=== PATIENT | female | born 1945 | race Caucasian/White ===

== ENCOUNTER 2018-05-16 16:05 | Outpatient (CLI) | payer MEDICARE ==
--- NOTE | 2018-05-16 16:22 | RAD ---
LEFT WRIST THREE VIEWS: History: Left wrist pain. FINDINGS: There is dorsal tilt of the distal radius with cortical remodeling of the distal radial metaphysis. A cute fracture is not reliably demonstrated. Scaphoid waist is intact. Ulnar styloid is maintained. Mo derate osteophytosis throughout the wrist. No aggressive osseous erosions. IMPRESSION: Abnormality of the left wrist is favored to represent an old distal radial fracture, healed in dorsal angulation. Acute fracture is not readily apparent. If there is recent trauma and ongoing concern re garding the possibility of acute injury, please consider immobilization and CT evaluation. POS: KENDRICK
== END 2018-05-16 16:06 | disposition home or self-care (01) ==
LOC: RAD-FRANK 16:05
DX: M25.532 Pain in left wrist (principal); R93.7 Abnormal findings on diagnostic imaging of other parts of musculoskeletal system

== ENCOUNTER 2018-05-18 13:15 | Outpatient (CLI) | payer MEDICARE ==
--- NOTE | 2018-05-18 14:23 | RAD ---
LEFT WRIST THREE VIEWS: History: 72-year-old female with history of follow up left wrist pain. Comparison: 05-16-18 FINDINGS: Again noted is some deformity of the distal radius having more the appearance of an old injury. Arthr osis changes of the triscaphe lesion and trapezium first metacarpal joints. IMPRESSION: Distal radial deformity having more the appearance of an old injury. Left wrist arthrosis. Given the fact that the patient has persistent left wrist pain, if there is clinical concern that this is an ac ambler injury or if the patient has persistent or worsening pain, consider follow up CT scan for further assessment. POS: KENDRICK
== END 2018-05-18 13:16 | disposition home or self-care (01) ==
LOC: RAD-FRANK 13:15
DX: M25.532 Pain in left wrist (principal); M19.032 Primary osteoarthritis, left wrist

== ENCOUNTER 2018-07-01 15:04 | Outpatient (CLI) | payer MEDICARE | END 2018-07-01 15:05 | disposition home or self-care (01) | LOC: BICMRI 15:04 | PROVIDERS: ATTEND Orthopaedic Surgery Hand Surgery | DX: S63.592A Other specified sprain of left wrist, initial encounter (principal); S63.8X2A Sprain of other part of left wrist and hand, initial encounter; M24.132 Other articular cartilage disorders, left wrist; M65.88 Other synovitis and tenosynovitis, other site; M19.032 Primary osteoarthritis, left wrist; M21.932 Unspecified acquired deformity of left forearm ==

== ENCOUNTER 2018-07-26 08:15 | Inpatient (IN) | payer MEDICARE ==
[2018-07-25 14:21] VITALS: BMI 41.9
[2018-07-26 10:03] LABS: #Basophils 0.1 thou/uL (0.0-0.2); #Eosinphils 0.2 thou/uL (0.0-0.7); #Lymphocytes 3.3 thou/uL (1.20-3.40); #Monocytes 0.7 thou/uL (0.11-0.59); #Neutrophils 4.1 thou/uL (1.40-6.50); %Basophils 1.3 % (0.0-1.0); %Eosinophils 2.9 % (0.0-10.0); %Lymphocytes 39.4 % (21.0-51.0); %Monocytes 7.9 % (0.0-10.0); %Neutrophils 48.6 % (42.0-75.0); Hemoglobin 13.9 g/dL (12.0-16.0); Mean Corpuscular HGB CONC 32.6 g/dL (32.0-36.0); Mean Corpuscular Hemoglobin 30.5 pg (27.0-31.0); Mean Corpuscular Volume 93.5 fL (78.0-98.0); Platelet Count 246 thou/uL (130-400); RBC Distribution Width 13.1 % (11.5-14.5); Red Blood Cell (RBC) Count 4.56 mill/uL (4.20-5.40); White Blood Cell (WBC) Count 8.4 thou/uL (4.8-10.8)
[2018-07-26 10:23] LABS: Anion Gap 13 mmol/L (10-20); BUN (Urea Nitrogen) 15 mg/dL (9.8-20.1); Calc. Creatinine Clearance 116 mL/min (70-130); Calcium 9.6 mg/dL (7.8-10.44); Carbon Dioxide 23 mmol/L (23-31); Chloride 107 mmol/L (98-107); Estimated GFR-MDRD 67; Glucose 108 mg/dL (80-115); Potassium 3.3 mmol/L (3.5-5.1); Sodium 140 mmol/L (136-145)
[2018-07-26] MEDS ORDERED: Midazolam HCl 2 mg/2 ml Vial ONE (10:36)
[2018-07-26] MEDS ORDERED: Bupivacaine PF 0.5% 30 ML VIAL ONE (11:13)
[2018-07-26] MEDS ORDERED: Bacitracin Zinc Ointment 30 gm TUBE ONE (11:13)
[2018-07-26] MEDS ORDERED: Fentanyl 100 MCG/2 ML VIAL ONE (11:18)
--- NOTE | 2018-07-26 11:45 | RAD ---
CHEST 2 VIEWS: Date: 07/26/18 HISTORY: Preop. COMPARISON: 05/23/16. FINDINGS: Heart size is enlarged. There are atherosclerotic changes of the aorta. The lungs are clear of infilt rates. Postoperative changes of the left shoulder are seen. There are arthritic changes of the spine. IMPRESSION: Mild cardiomegaly. Stable exam. POS: KENDRICK
--- NOTE | 2018-07-26 11:46 | RAD ---
LEFT WRIST 2 VIEWS: Date: 07/26/18 HISTORY: Preop. FINDINGS: There is deformity to the distal radius related to an old fracture. There are some arthritic changes of the wrist, including some mild changes of the radiocarpal joint space and first carpometacarpal matteo int space. No signs of any acute injury. IMPRESSION: Arthritic changes and old post-traumatic changes of the wrist. POS: KENDRICK
[2018-07-26] MEDS ORDERED: EPINEPHrine 1 MG/ML AMP ONE ×2 (12:06→12:07)
[2018-07-26] MEDS ORDERED: Ketorolac Tromethamine 30 MG/ML VIAL ONE (13:49)
[2018-07-26] MEDS ORDERED: Ondansetron HCl/PF 4 MG/2 ML Vial ONE (13:49)
[2018-07-26] MEDS ORDERED: diphenhydrAMINE 50 MG/ML VIAL ONE (13:49)
[2018-07-26] MEDS ORDERED: PROPOFOL 200 MG/20 ML VIAL ONE (13:49)
[2018-07-26] MEDS ORDERED: Lidocaine 1% PF 5 ML VIAL ONE (13:49)
[2018-07-26] MEDS ORDERED: ePHEDrine/0.9% NaCl/PF SYRINGE 50 mg/10 ml ONE (13:49)
[2018-07-26] MEDS ORDERED: Ondansetron HCl/PF 4 MG/2 ML Vial IVP PRN (15:59)
[2018-07-26] MEDS ORDERED: Promethazine HCl 25 MG/ML VIAL IM PRN (15:59)
[2018-07-26] MEDS ORDERED: Meperidine HCl/PF 25 MG/ML VIAL SLOW IVP PRN (15:59)
[2018-07-26] MEDS ORDERED: HYDROmorphone 2 MG/ML VIAL SLOW IVP PRN (15:59)
[2018-07-26] MEDS ORDERED: Promethazine HCl 25 MG/ML VIAL SLOW IVP PRN (15:59)
[2018-07-26] MEDS ORDERED: Milk Of Magnesia 30 ML UDCUP PO PRN (16:01)
[2018-07-26] MEDS ORDERED: Ondansetron HCl/PF 4 MG/2 ML Vial IV PRN (16:01)
[2018-07-26] MEDS ORDERED: traMADol HCl 50 MG TAB PO PRN (16:01)
[2018-07-26] MEDS ORDERED: Communication Order-Pharmacy FS SCH (16:15)
[2018-07-26] MEDS ORDERED: TETANUS AND DIPHTHERIA TOX/PF 0.5 ML DISP.SYRIN IM SCH (16:15)
--- NOTE | 2018-07-26 16:46 | RAD ---
LEFT WRIST THREE VIEWS: HISTORY: Status post ORIF. FINDINGS: Ten portable fluoroscopic spot images are presented for interpretation. These demonstrate placement of a metallic plate and multiple screws stabilizing the distal radius. IMPRESSION: Metal plate and screws placed, stabilizing the distal radius. POS: C
[2018-07-26] MEDS: Aspirin 81 mg Enteric Coated Tablet PO SCH (20:13)
[2018-07-26] MEDS ORDERED: Prevnar 13-Val Conj/PF 0.5 ML SYRINGE IM ONE (21:00)
[2018-07-26] MEDS: HYDROcodone/Acetaminophen 5/325 mg Tablet PO PRN (23:08)
[2018-07-27] MEDS: HYDROcodone/Acetaminophen 5/325 mg Tablet PO PRN ×3 (03:25→12:53)
[2018-07-27] MEDS: Aspirin 81 mg Enteric Coated Tablet PO SCH (08:27)
[2018-07-27 15:19] VITALS: BP 124/72; TEMP 98.6
--- NOTE | 2018-07-28 09:05 | OP ---
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 FINDINGS: 1. Synovitis, wrist. 2. Triangular fibrocartilage radial and central tear, incomplete without true distal radioulnar join t instability. No evidence of intercarpal ligament tear. 3. 3 mm of radial shortening versus the contralateral side on preoperative radiograph. PROCEDURES PERFORMED: 1. Arthroscopic synovectomy of wrist, left. 2. Arthroscopic triangular fibrocartilage debridement, radial and a central tear. 3. Open distal radius osteotomy with bone grafting from cancellous block 5 mm thick, 5 mm x 1 cm in height from cadaver bone with application of a dorsal plate, 2-4 screws. 4. C-arm supervision, one hour. ESTIMATED BLOOD LOSS: 20 mL. TOURNIQUET TIME: 116 minutes. INDICATION: The patient with a fall, initially distal radius fracture developed ulnar side wri st pain. MRI was consistent with possible TFCC tear, and she showed dorsal angulation in the sagitta l plane (apex palmar) of 15 degrees greater than the contralateral side. It was felt that the correc t radius where the problem initiated would be more successful along the TFCC management than ul christal shortening. DESCRIPTION OF PROCEDURE: After successful general endotracheal anesthesia, the limb was prepped and draped. She had time-out done appropriately. The anesthesia was given by [facility]. It was augmented with 20 mL of 0.5% Marcaine block along with the planned scope and dorsal distal radius incision because the patient did not want to have a block and refused the block preop. The patient then had the tourniquet inflated after exsanguination of limb to 250 mmHg pressure. We t hen began with the arthroscopy with the arm in the [employer] arm weaver, suspended approximately 10-12 pounds of traction. We slightly distracted the joint, established under sterile technique with the t raction, the 3-4 portal, the 6U and 6R portals. Panoramic view revealed the patient had no scapholun ate or lunotriquetral tear, had some fraying to the chondral area over the lunate with only grade II changes and there was marked synovitis. Alternating between working portals and viewing portals betw een the 3-4 and the 6R, we were able to remove the synovium; and then using all 3 portals alternating between working and visualization, we were able to debride a 1 cm long tear that was about 2-3 mm wi de and was complete only in the central portion, otherwise it was incomplete. We gave a stable rim o n the radial and central area, and there was no instability. Then, we removed the arthroscope after performing synovectomy and finishing the panoramic view. We c losed the portals. We then made a zigzag incision with the tourniquet inflated in the interspace bet ween the third and fourth dorsal compartment, removed the retinaculum, but left it where it could be closed, elevated the extensor pollicis longus, the extensor carpi radialis longus and brevis and via complete visualization of the radius from the fourth, fifth, and sixth dorsal compartments. Then, we identified the old fracture line, and at this point, made a umang for saw cut. It was clear that we could see the radial negative area, but it was not as big as we had thought, and we also saw the old fracture line. We then placed a K-wire 90 degrees to the proximal shaft of the radius, and then one K-wire that was parallel to articular surface, noting that once we made our cut these two would have to be slightly over reduced. We then placed a saw and with protecting all structures with a baby [place] patel retractor on radioulnar aspect of the distal radius, cut down to approximately 1-2 mm from the v olar cortex, did not penetrate the volar cortex, and then slowly broke it using the wires in distal r adius fragment. Then, the patient had a lamina barbed wire machine operator brought into the field, there were three 0.0 62 K-wires used to manipulate as a joystick to the distal fragment, we had achieved adequate reductio n. We then brought the clamp and placed it inside, distracted about 5 to 6 mm and apex dorsal angula lennie now structure. We then achieved at least neutral height in most projections and we were able to maintain this, we pinned this with K-wires x3 across the fracture line, making it stable. The shaft was approximately 2 mm ulnar compared to the metaphyseal area creating slightly more movement at the distal radioulnar joint and we accepted a neutral to 0.5 mm radial positive wrist in order to achieve more height. There was no impingement once we had this construct pinned, then we placed cancellous bone models 5 mm at the dorsal surface and it went down to 1-2 mm width at the dorsal edge. We then used a bone tamp to make sure the bone was secured, continued to use frontal and lateral x-rays to sh ow it was secured. When the bone graft appeared to be almost the tanana shaft, we then select ed a plate to hold this. The plate was a 7-hole plate with 3 holes, 2.4, distal to the osteotomy radha e on the metaphysis and at the diaphysis junction proximal to the bone graft and osteotomy site. The re were 3 screws placed. All screws penetrated the cortex, gave excellent feel. The previous 12-deg ree palmar tilt corrected when the screws were placed proximally to approximately 4 or 5 degrees palm ar tilt. We then deflated the tourniquet, obtained hemostasis. The wound was closed in layers, firs t using a retinaculum closure with a 0 Vicryl interrupted [id number] pattern, followed by retina cular closure with 2-0 Vicryl interrupted [id number] pattern, and subcutaneous closure with 4-0 Monocryl without evidence of abnormality. We then closed the remaining portals as well as the epider mis with interrupted 4-0 nylon simple pattern. Remaining portion of the 40 mL injection was given an d the patient left the operating room with a sugar-tong splint without evidence of anesthetic or oper ative complication.
--- NOTE | 2018-07-31 14:36 | EKG ---
Test Reason : PREOP Blood Pressure : / mmHG Vent. Rate : 055 BPM Atrial Rate : 055 BPM P-R Int : 160 ms QRS Dur : 076 ms QT Int : 482 ms P-R-T Axes : 015 007 020 degrees QTc Int : 461 ms Sinus bradycardia Otherwise normal ECG When compared with ECG of 19-JUN-2016 09:30, No significant change was found Confirmed by NAHED BILL (2) on 07/31/2018 2:35:46 PM Referred By: Pancho TODD Confirmed By:NAHED BILL
== END 2018-07-27 16:45 | disposition home or self-care (01) | DRG 512 ==
LOC: SURG A 08:50
PROVIDERS: ADMIT Orthopaedic Surgery Hand Surgery; ATTEND Orthopaedic Surgery Hand Surgery
PROC: 0RBP4ZZ Excision of Left Wrist Joint, Percutaneous Endoscopic Approach (ICD-10-PCS; principal; 2018-07-26)
PROC: 0PBJ0ZZ Excision of Left Radius, Open Approach (ICD-10-PCS; 2018-07-26)
PROC: 0JDH3ZZ Extraction of Left Lower Arm Subcutaneous Tissue and Fascia, Percutaneous Approach (ICD-10-PCS; 2018-07-26)
PROC: 0PR Upper Bones, Replacement (ICD-10-PCS; 2018-07-26)
DX: S52.509P Unspecified fracture of the lower end of unspecified radius, subsequent encounter for closed fracture with malunion (principal); S63.592A Other specified sprain of left wrist, initial encounter; M25.832 Other specified joint disorders, left wrist; X58.XXXA Exposure to other specified factors, initial encounter; Y93.9 Activity, unspecified; Y92.9 Unspecified place or not applicable; M65.832 Other synovitis and tenosynovitis, left forearm; M25.332 Other instability, left wrist; E66.01 Morbid (severe) obesity due to excess calories; F41.8 Other specified anxiety disorders; W19.XXXD Unspecified fall, subsequent encounter; E11.9 Type 2 diabetes mellitus without complications; I10 Essential (primary) hypertension; Z98.84 Bariatric surgery status; Z88.0 Allergy status to penicillin
CPT/HCPCS: 36415; 71046; 76001; 80048; 85025; 90471; 90670; 93005; 93010; A4216; C1713; G0009; J0171; J1200; J1885; J2001; J2250; J2270; J2405; J2704; J3010; J3370; S0020

== ENCOUNTER 2019-03-21 19:40 | Emergency (ER) | payer MEDICARE | END 2019-03-21 21:07 | disposition home or self-care (01) | LOC: ERS 19:40 | DX: T23.172A Burn of first degree of left wrist, initial encounter (principal); T23.152A Burn of first degree of left palm, initial encounter; E11.9 Type 2 diabetes mellitus without complications; F41.9 Anxiety disorder, unspecified; F32.9 Major depressive disorder, single episode, unspecified; X16.XXXA Contact with hot heating appliances, radiators and pipes, initial encounter | CPT/HCPCS: 99283 ==

== ENCOUNTER 2021-09-11 11:28 | Outpatient (CLI) | payer MEDICARE | END 2021-09-11 11:29 | disposition home or self-care (01) | LOC: RAD-FRANK 11:28 | PROVIDERS: ATTEND Nurse Practitioner Family | DX: M25.512 Pain in left shoulder (principal); Z98.890 Other specified postprocedural states ==

== ENCOUNTER 2022-04-14 10:36 | Outpatient (CLI) | payer MEDICARE | END 2022-04-14 10:37 | disposition home or self-care (01) | LOC: BICMAMMO 10:36 | PROVIDERS: ATTEND Family Medicine | DX: Z13.820 Encounter for screening for osteoporosis (principal); M85.852 Other specified disorders of bone density and structure, left thigh | CPT/HCPCS: 77063; 77067; 77080 ==

== ENCOUNTER 2022-06-15 11:04 | Outpatient (CLI) | payer MEDICARE | END 2022-06-15 11:05 | disposition home or self-care (01) | LOC: RAD-FRANK 11:04 | PROVIDERS: ATTEND Nurse Practitioner Family | DX: M54.42 Lumbago with sciatica, left side (principal); M47.816 Spondylosis without myelopathy or radiculopathy, lumbar region | CPT/HCPCS: 72100 ==

== ENCOUNTER 2022-11-18 12:41 | Outpatient (CLI) | payer MEDICARE | END 2022-11-18 12:42 | disposition home or self-care (01) | LOC: MRI 12:41 | PROVIDERS: ATTEND Neurological Surgery | DX: M51.16 Intervertebral disc disorders with radiculopathy, lumbar region (principal); M51.37 Other intervertebral disc degeneration, lumbosacral region | CPT/HCPCS: 72148 ==

== ENCOUNTER 2025-08-08 11:45 | Emergency (ER) | payer MEDICARE ==
[2025-08-08] MEDS ORDERED: Ketorolac Tromethamine 30 MG (1 mL) VIAL ONE (13:53)
[2025-08-08] MEDS ORDERED: HYDROcodone/Acetaminophen 7.5/325 mg Tablet ONE ×2 (13:53→18:15)
[2025-08-08] MEDS ORDERED: Azithromycin 250 MG TAB ONE (18:58)
[2025-08-08] MEDS ORDERED: cefTRIAXone (ROCEPHIN) 500 MG VIAL ONE (18:58)
== END 2025-08-08 19:02 | disposition home or self-care (01) ==
LOC: ERS 11:45
DX: S32.029A Unspecified fracture of second lumbar vertebra, initial encounter for closed fracture (principal); S22.069A Unspecified fracture of T7-T8 vertebra, initial encounter for closed fracture; S40.022A Contusion of left upper arm, initial encounter; W18.2XXA Fall in (into) shower or empty bathtub, initial encounter; I10 Essential (primary) hypertension; E11.9 Type 2 diabetes mellitus without complications
CPT/HCPCS: 72125; 72128; 72131; 96372; J0696; J1885

== ENCOUNTER 2025-08-10 11:48 | Emergency (ER) | payer MEDICARE ==
[2025-08-10 15:37] LABS: ALT (SGPT) 38 U/L (Less than 34); AST (SGOT) 64 U/L (11-34); Albumin 3.4 g/dL (3.1-4.5); Alkaline Phosphatase 130 U/L (40-110); Anion Gap 17 mmol/L (10-20); BUN (Urea Nitrogen) 29 mg/dL (9.8-20.1); Bilirubin, Total 1.3 mg/dL (0.3-1.2); Calc. Creatinine Clearance 0 mL/min (70-130); Calcium 9.9 mg/dL (7.8-10.44); Carbon Dioxide 20 mmol/L (23-31); Chloride 107 mmol/L (98-107); Globulin 4.0 g/dL (2.4-3.5); Glucose 104 mg/dL (83-110); Potassium 5.2 mmol/L (3.5-5.1); Sodium 139 mmol/L (136-145)
== END 2025-08-10 16:50 | disposition home or self-care (01) ==
LOC: ERS 11:48
DX: S32.029A Unspecified fracture of second lumbar vertebra, initial encounter for closed fracture (principal); E87.5 Hyperkalemia; N18.9 Chronic kidney disease, unspecified; R74.01 Elevation of levels of liver transaminase levels; I10 Essential (primary) hypertension; E11.9 Type 2 diabetes mellitus without complications; W18.30XA Fall on same level, unspecified, initial encounter
CPT/HCPCS: 70450; 72100; 80053; 96374